=== PATIENT | male | born 1950 | race Caucasian/White ===

== ENCOUNTER 2024-04-18 10:46 | Emergency (ER) | payer MEDICARE, SELFPAY ==
[2024-04-18 10:51] VITALS: BP 172/87; PULSE 78; RESP 20; TEMP 36.6; O2SAT 98; BMI 27.1
--- NOTE | 2024-04-18 12:09 | ED_ITS ---
HPI - Skin/Abscess/Foreign Bdy <Elise Caruso PA-C - Last Filed: 04/18/24 13:20> General Chief complaint: Skin/Abscess/Foreign Body Stated complaint: per pt alarming growth on R arm Time Seen by Provider: 04/18/24 12:09 Source: patient Mode of arrival: Ambulatory Limitations: no limitations History of Present Illness HPI narrative: This is a 73-year-old male with history of hypertension and bipolar who presents with concern for a changing skin lesion on his right posterior upper arm. Patient states about 2 months ago he 1st noticed a lesion on the back of his arm. He says it grew fairly rapidly but in the last couple of weeks even last couple of days it has gotten significantly larger. It started off with a rounded appearing lesion with a ring and a central area that was grayish or dark. He says it seems like it changes ?every day?. In the 1st month or so he noticed it bled quite a bit when it rubbed against clothing all this this has largely stopped. He also states he had a similar lesion that was smaller on his left lower leg that he ?burned off himself?. The leg lesion appeared around the same time as the 1 on his arm. Patient denies any known history of skin cancer but has not seen a sausage smoker previously. He has not seen his PCP in over a year due to change in providers and lack of provider at the [facility] on [address] [place] where he lives. He was seen by a nurse there who recommended he see dermatology and he came to the emergency department here in [place] today. Related Data Previous Rx's Medication Instructions Recorded fluticasone propionate 50 0.05 mg NS QDAY ##1 03/28/17 mcg/actuation nasal spray,suspension hydrochlorothiazide 12.5 mg capsule 12.5 mg PO QDAY #90 caps 06/06/17 atorvastatin 40 mg tablet (Lipitor) 40 mg PO HS #90 tabs 06/18/17 lisinopril 10 mg tablet 10 mg PO QDAY #90 tabs 06/18/17 lithium carbonate 300 mg 0 PO TID #90 tabs 06/18/17 tablet,extended release (Lithobid) cephalexin 500 mg capsule 500 mg PO Q8H 7 days #21 caps 04/18/24 Allergies Allergy/AdvReac Type Severity Reaction Status Date / Time HAY FEVER Allergy Mild ITCHY Uncoded 01/30/18 12:16 EYES,NASAL RHINITIS Review of Systems <Elise Caruso PA-C - Last Filed: 04/18/24 13:20> Review of Systems Narrative: See HPI Patient History <Elise Caruso PA-C - Last Filed: 04/18/24 13:20> Social History Smoking Status: Never smoker Smoking Status: Never smoker alcohol intake frequency: 0-2 drinks per day Substance Use Type: does not use Exam <Elise Caruso PA-C - Last Filed: 04/18/24 13:20> Narrative Exam Narrative: GENERAL: [73] year old patient appears stated age. Well-developed patient, in mild distress. HEAD: Atraumatic. Normocephalic. EYES: Pupils equal round and reactive. Extraocular motions intact. No scleral icterus. No injection or drainage. ENT: Nose without bleeding, purulent drainage. Airway patent. NECK: Trachea midline. Non tender CARDIOVASCULAR: Regular rate and rhythm without murmurs, gallops, or rubs. RESPIRATORY: Clear to auscultation. Breath sounds equal bilaterally. No wheezes, rales, or rhonchi. GASTROINTESTINAL: Abdomen nondistended. EXTREMITIES: No edema or joint tenderness. BACK: see Skin. Nontender without deformity or crepitance. No flank tenderness. NEURO: AOx3. SKIN: There is a roughly annular skin lesion that is erythematous at the base with a central scabbed and crusting brownish davis center, the lesion is mobile, slightly firm but compressible and nontender; located on the patient's right posterior upper arm proximally 8 cm above the elbow. Measures [id number] and 8mm H. patient has multiple other skin lesion on his torso chest and back which look like seborrheic keratoses. No rash or erythema of visible areas Initial Vital Signs Initial Vital Signs: Vital Signs Temperature 98 F 04/18/24 10:51 Pulse Rate 78 04/18/24 10:51 Respiratory Rate 20 04/18/24 10:51 Blood Pressure 172/87 H 04/18/24 10:51 Pulse Oximetry 98 04/18/24 10:51 Oxygen Delivery Method Room Air 04/18/24 10:51 <Ayaan Garrett DO - Last Filed: 04/18/24 13:26> Initial Vital Signs Initial Vital Signs: Vital Signs Temperature 98 F 04/18/24 10:51 Pulse Rate 78 04/18/24 10:51 Respiratory Rate 20 04/18/24 10:51 Blood Pressure 172/87 H 04/18/24 10:51 Pulse Oximetry 98 04/18/24 10:51 Oxygen Delivery Method Room Air 04/18/24 10:51 Course <Elise Caruso PA-C - Last Filed: 04/18/24 13:20> Orders Ordered: ED Orders 04/18/24 12:33 Consult to [facility] [place] - [facility] Stat Vital Signs Vital signs: Vital Signs - 8 hr 04/18/24 10:51 04/18/24 13:21 Temperature 98 F 98 F Pulse Rate 78 88 Respiratory Rate 20 20 Blood Pressure 172/87 H 170/67 H Pulse Oximetry 98 100 Oxygen Delivery Method Room Air Room Air <DO Joseph Goetz Last Filed: 04/18/24 13:26> Orders Ordered: ED Orders 04/18/24 12:33 Consult to [facility] Stat Vital Signs Vital signs: Vital Signs - 8 hr 04/18/24 10:51 04/18/24 13:21 Temperature 98 F 98 F Pulse Rate 78 88 Respiratory Rate 20 20 Blood Pressure 172/87 H 170/67 H Pulse Oximetry 98 100 Oxygen Delivery Method Room Air Room Air MDM - Skin/Abscess/Foreign Bdy <Elise Caruso PA-C - Last Filed: 04/18/24 13:20> Differential Diagnosis Differential diagnosis: Likely abscess of skin or subcutaneous tissue and other (basal cell carcinoma, squamous cell carcinoma, melanoma) Medical Records Attestation: I reviewed the patient's medical records. MDM Narrative Medical decision making narrative: This is a 73-year-old male with history of hyperlipidemia, hypertension and bipolar presents today with concern for a lesion on his right upper arm that has been rapidly growing in the past 2 weeks and increasingly worsened in the last 2 days but has been present for 2 months. He has not yet seen a provider for this and a nurse at [facility] advised he see dermatology. Social work was consulted given patient seems to be having difficulty accessing care, did also call the office of [facility] and [place] who state their 1st available appointment is not until early May. I think the patient would benefit from having biopsy and being seen prior to this ideally in the next 2 weeks. And have asked social work to try to assist if necessary reach out to the [facility] and possibly help him get scheduled in for an appointment in the next few weeks if possible in [place]. Given the increasing redness of the area and rapid change in size I will prescribe a course of antibiotics today in the event that this could be an infectious process although there is no fluctuance or drainage from the area. He has also not had fevers chills or other concerning symptoms for infection. His vitals today are unremarkable. Return precautions provided, follow-up plan discussed, all questions answered Discharge Plan Departure Patient Disposition: Home Clinical Impression: Changing skin lesion, Bleeding pigmented skin lesion Activity Restrictions/Additional Instructions: *You have been diagnosed with [changing skin lesion, bleeding skin lesion] *What to do: *Please continue to take your regular medications as directed. [ 1] New medication prescriptions sent to your pharmacy: [ ] [ ] New medication written as a paper prescription [ ] No new medications given *Please follow up with your primary care provider in 2-3 days, call for an appointment. Let them know you were seen in the Emergency Department and that we ask that you be seen in follow up. We will electronically transmit a record of today's note if your PCP is in our system. I do have concern that the skin lesion on your arm could possibly be cancerous. You did have a referal placed to [facility] 8 days ago. Our social professionals called [facility] and confirmed this. As we discussed [facility] and your referral went to [facility]. Our social professionals in the ER worked with you to talk to the piling setter at their office and was able to get you an appointment scheduled in [facility]. [facility] Office [address] [phone] Appointment scheduled for: April 30, 2024 1:30pm with Dr Laws Because this skin spot has been changing fairly rapidly and has been increasingly red recently I am going to place you on a short course of antibiotics as a precaution in case there is infection. As the [facility] is closed on the weekends I sent this prescription into [facility] which is here at the hospital so please pick this up before you leave the hospital today and go back to the [place]. Please follow-up closely with your primary care provider and dermatology and hopefully you can get seen in the next few weeks to have this biopsied. *If you do not have a primary care provider please contact the [facility] Resource line at [phone]. They will ask some questions about your medical history and help get you set up with a doctor in the community. *Return to Emergency Department if you should have any new, worsening or concerning symptoms, such as [fever greater than 101 F, shaking chills, worsening pain, persistent vomiting or other bothersome symptoms] Prescriptions: New cephalexin 500 mg capsule 500 mg PO Q8H 7 Days Qty: 21 0RF No Action fluticasone propionate 16 GM spray,suspension 0.05 mg NS QDAY Qty: 1 1RF hydrochlorothiazide 12.5 MG capsule 12.5 mg PO QDAY Qty: 90 1RF atorvastatin [Lipitor] 40 MG tablet 40 mg PO HS Qty: 90 1RF lithium carbonate [Lithobid] 300 MG tablet extended release 0 PO TID Qty: 90 0RF lisinopril 10 MG tablet 10 mg PO QDAY Qty: 90 1RF Referrals: Jeanne Morgan MD [Physician] - (high suspicion for cancerous growth r arm, rapidly changing/discoloration/irregular. [id number] H) Francisco Olea MD [Primary Care Provider] - Stand Alone Forms: Patient Portal/API ED Sign-out <Ayaan Garrett, DO - Last Filed: 04/18/24 13:26> [facility] Dr Garrett Co-Sign Statement: I was available for consultation during this patient's emergency department visit. This chart is signed by myself for administrative purposes only. I did not have direct contact with this patient during this visit. They were seen independently by the [facility].
--- NOTE | 2024-04-18 12:24 | PC.NURSE ---
quarter size raised round lesion with dark irregular center and red edges. Patient states it changes daily in shape size and color. Small amount of bleeding noted by patient from it at one point. No bleeding at this time.
--- NOTE | 2024-04-18 13:10 | CM.SWNOTE ---
ED COMMERCIAL LINES ACCOUNT MANAGER Note COMMERCIAL LINES ACCOUNT MANAGER receives referral from ED provider Elise Caruso PA-C due to patient's need for coordination of care to be seen by Dermatology. patient's PCP is with [facility], COMMERCIAL LINES ACCOUNT MANAGER calls clinic and it is reported that they sent a dermatology referral to [facility] known [facility] on 04/10/24. COMMERCIAL LINES ACCOUNT MANAGER calls [facility] and it is reproted that they received the referral. COMMERCIAL LINES ACCOUNT MANAGER calls [facility] with patient and schedules Dermatology f/u for patient at the soonest date at time at the [facility] for April 30 @ 1:30 pm. Plan: patient to d/c to home upon medical clearance, patient to f/u with PCP and with Dermatology appt in the next few weeks. SAMSON Davison
[2024-04-18 13:21] VITALS: BP 170/67; PULSE 88; RESP 20; TEMP 36.6; O2SAT 100
== END 2024-04-18 13:24 | disposition home or self-care (01) ==
PROVIDERS: Emergency Provider Student in an Organized Health Care Education/Training Program; Family Provider Family Medicine; PCP Family Medicine
DX: L98.9 Disorder of the skin and subcutaneous tissue, unspecified (principal)
CPT/HCPCS: 99281; 99283